=== PATIENT | female | born 1990 | race American Indian/Alaskan Native ===

== ENCOUNTER 2016-07-05 19:19 | Emergency (ER) | payer MEDICAID ==
[2016-07-05 19:20] VITALS: BMI 31.3
[2016-07-05] MEDS ORDERED: Sodium Chloride 0.9% 1,000 ML IV ONE (20:22)
[2016-07-05 20:28] LABS: BASO % 0.3 % (0.0-2.0); EOS % 0.3 % (0.0-4.0); HEMATOCRIT 40.4 % (34.0-47.0); LYMPH # 0.9 K/uL (1.0-4.3); LYMPH % 13.7 % (20.0-40.0); MEAN CORPUSCULAR HEMOGLOBIN 30.3 pg (27.0-31.0); MEAN CORPUSCULAR HGB CONC 33.1 g/dL (33.0-37.0); MEAN PLATELET VOLUME 9.2 fL (7.2-11.7); MONO # 0.5 K/uL (0.0-0.8); MONO % 8.4 % (0.0-10.0); NRBC % 0.1 % (0.0-2.0); RED CELL DISTRIBUTION WIDTH 14.6 % (11.5-14.5); WHITE BLOOD COUNT 6.2 K/uL (4.8-10.8)
[2016-07-05 20:30] LABS: MEAN CELL VOLUME 91.4 fL (81.0-99.0)
[2016-07-05 20:36] LABS: CHLORIDE 97 mmol/L (98-107); POTASSIUM 3.8 mmol/L (3.6-5.2); RBC URINE 2 /hpf (0-3); SODIUM 137 mmol/L (132-148); URINE BACTERIA OCC (<OCC); URINE BILIRUBIN NEGATIVE (NEGATIVE); URINE BLOOD NEGATIVE (NEGATIVE); URINE COLOR Yellow (YELLOW); URINE GLUCOSE (UA) NORMAL (Normal); URINE KETONE NEGATIVE (NEGATIVE); URINE LEUKOCYTE ESTERASE TRACE Leu/uL (Negative); URINE PROTEIN NEGATIVE (NEGATIVE); URINE UROBILINOGEN NORMAL mg/dL (0.2-1.0); WBC URINE 13 /hpf (0-5)
[2016-07-05 20:38] LABS: BILIRUBIN,TOTAL 0.8 mg/dL (0.2-1.3); GFR AFRICAN-AMERICAN > 60
[2016-07-05 20:39] LABS: ALKALINE PHOSPHATASE 63 U/L (38-126); ALT/SGPT 23 U/L (9-52); AST/SGOT 27 U/L (14-36); BLOOD UREA NITROGEN 14 mg/dL (7-17); CARBON DIOXIDE 26 mmol/L (22-30); GLUCOSE,RANDOM 84 mg/dL (65-105); TOTAL PROTEIN 8.2 g/dL (6.3-8.3)
[2016-07-05 20:40] LABS: CALCIUM 8.1 mg/dl (8.6-10.4)
[2016-07-05] MEDS ORDERED: Sodium Chloride 0.9% 1,000 ML ONE (20:42)
--- NOTE | 2016-07-05 22:00 | C.PDOC ---
History Of Present Illness 26 year old female c/o of abdominal pain that began yesterday. Pt also complains of nausea, abdominal pain, diarrhea, and general weakness. Pt denies any sick contact or food, fever, dysuria, hematuria, vaginal bleeding, vaginal discharge, or any other complaints. Time Seen by Provider: 07/05/16 19:45 Chief Complaint (Nursing): Abdominal Pain History Per: Patient History/Exam Limitations: no limitations Onset/Duration Of Symptoms: Days Current Symptoms Are (Timing): Still Present Severity: Mild Associated Symptoms: Nausea, Diarrhea. denies: Fever, Vomiting Recent travel outside of the [place]: No Past Medical History Reviewed: Historical Data, Nursing Documentation, Vital Signs Vital Signs: Last Vital Signs Temp 97.8 F 07/05/16 22:15 Pulse 70 07/05/16 22:15 Resp 14 07/05/16 22:15 BP 110/70 07/05/16 22:15 Pulse Ox 98 07/05/16 22:54 - Medical History PMH: Denies: Chronic Kidney Disease - [facility] Procedures ASPIR CURETT UTERUS NEC (11/11/14) CLOSED BIOPSY OF UTERUS (08/19/14) D & C NEC (08/19/14) MANUAL ASSIST DELIV NEC (01/22/13) Family History: States: Unknown Family Hx - Social History Hx Tobacco Use: No Hx Alcohol Use: Yes Hx Substance Use: No - Immunization History Hx Tetanus Toxoid Vaccination: No Hx Influenza Vaccination: No Hx Pneumococcal Vaccination: No Review Of Systems Except As Marked, All Systems Reviewed And Found Negative. Constitutional: Negative for: Fever Gastrointestinal: Positive for: Nausea, Abdominal Pain, Diarrhea. Negative for : Vomiting Genitourinary: Negative for: Dysuria, Hematuria, Vaginal Discharge, Vaginal Bleeding Neurological: Positive for: Weakness (General weakness) Physical Exam - Physical Exam Appears: Well, Non-toxic, No Acute Distress Skin: Warm, Dry Head: Atraumatic, Normacephalic Chest: Symmetrical Cardiovascular: Rhythm Regular Respiratory: Normal Breath Sounds, No Rales, No Rhonchi, No Wheezing Gastrointestinal/Abdominal: Tenderness (Mild epigastric tenderness), No Guarding , No Rebound, No Other (Negative for saloomn's sign. CVA tenderness) Neurological/Psych: Oriented x3, Normal Speech ED Course And Treatment - Laboratory Results Result Diagrams: 07/05/16 20:07/05/16 20:21 O2 Sat by Pulse Oximetry: 98 Progress Note: Blood work and urinalysis and other lab works was done on pt. IV fluids and IV toradol was given. Pt is instructed to return if symptoms were to persist after discharge. Disposition Counseled Patient/Family Regarding: Studies Performed, Diagnosis, Need For Followup, Rx Given - Disposition Referrals: [facility] [Outside] Disposition: HOME/ ROUTINE Disposition Time: 22:00 Condition: STABLE Prescriptions: Dicyclomine [Bentyl] 20 mg PO Q6 PRN #12 tab PRN Reason: ABDOMINAL CRAMPING Famotidine [Pepcid] 20 mg PO BID PRN #15 tab PRN Reason: abdominal Ondansetron [Zofran Odt] 4 mg PO Q8 PRN #12 odt PRN Reason: Nausea/Vomiting Instructions: Acute Nausea and Vomiting (ED), Acute Diarrhea (ED) Print Language: BOLIVIAN - POA Present On Arrival: None - Clinical Impression Clinical Impression: Nausea, Vomiting, Diarrhea, Abdominal pain - Scribe Statement The provider has reviewed the documentation as recorded by the Scribdoug Hong All medical record entries made by the Viviibdoug were at my direction and personally dictated by me. I have reviewed the chart and agree that the record accurately reflects my personal performance of the history, physical exam, medical decision making, and the department course for this patient. I have also personally directed, reviewed, and agree with the discharge instructions and disposition.
[2016-07-05 22:15] VITALS: BP 110/70; PULSE 70; RESP 14; TEMP 97.8
[2016-07-05 22:46] VITALS: O2SAT 98
== END 2016-07-05 22:15 | disposition home or self-care (01) ==
LOC: C.ER 19:19
DX: R10.13 Epigastric pain (principal); R11.2 Nausea with vomiting, unspecified; R19.7 Diarrhea, unspecified